=== PATIENT | female | born 2000 | race African-American/Black ===

== ENCOUNTER 2021-04-24 10:07 | Observation (INO) ==
[2021-04-24] MEDS ORDERED: ONDANSETRON 4 MG/2 ML VIAL IV STA (11:21)
[2021-04-24] MEDS ORDERED: SODIUM CHLORIDE 0.9% 1,000 ML IV STA ×2 (11:21→13:26)
[2021-04-24 12:39] LABS: Basophils % 0.2 % (0.0-0.8); Eosinophils # 0.2 10*3/uL (0.0-0.87); Eosinophils % 2.2 % (0.00-10.9); Hematocrit 36.9 VOL% (35.7-47.0); Hemoglobin 12.6 GM/DL (12.0-16.0); Immature Granulocytes % 0.8 %; Immature Granulocytes Absolute 0.07 #; Lymphocytes # 2.3 10*3/uL (1.4-4.0); Lymphocytes % 25.5 % (21.3-54.2); Mean Corpuscular HGB Conc 34.1 GM/DL (32-36); Mean Corpuscular Volume 82.6 FL (87-102); Mean Platelet Volume 9.7 FL (9.6-12.0); Monocytes % 8.4 % (1.7-12.7); Neutrophils % 62.9 % (38.7-73.9); Platelet Count 264 T/CUMM (130-400); Red Blood Count 4.47 MC/CUMM (3.8-5.5); Red Cell Distribution Width 13.3 % (9.3-17.3)
[2021-04-24 12:52] LABS: Calcium 9.2 MG/DL (8.5-10.1); Potassium 3.6 MMOL/L (3.5-5.1)
[2021-04-24 14:00] LABS: Bacteria,Urine Many /HPF (Few); Bilirubin,Urine Negative (Negative); Blood, Urine Negative (Negative); Calcium Oxalate Crystals,Urine Occasional /HPF (Few); Glucose,Urine (UA) Negative (Negative); Ketones,Urine 20 mg/dL (Negative); Mucus,Urine Moderate /LPF (Occasional); Nitrite,Urine Negative (Negative); Protein,Urine 30 MG/DL; RBC,Urine 1 /HPF (0-4); Squamous Epithelial Cell,Urine Few /HPF (0-10); Urine Appearance CLOUDY (Clear); Urine Color Amber (Yellow); Urine Specific Gravity 1.021 (1.001-1.035)
[2021-04-24] MEDS ORDERED: ACETAMINOPHEN 325 MG TABLET PO PRN (15:40)
[2021-04-24] MEDS ORDERED: MAGNESIUM HYDROXIDE SUSP 30 ML UDCUP PO PRN (15:40)
[2021-04-24] MEDS ORDERED: IBUPROFEN 800 MG TABLET PO PRN (15:40)
[2021-04-24] MEDS ORDERED: BISACODYL 10 MG SUPP RECTAL PRN (15:40)
[2021-04-24] MEDS ORDERED: ONDANSETRON 4 MG/2 ML VIAL IV PRN (15:40)
[2021-04-24] MEDS ORDERED: ACETAMINOPHEN 500 MG TABLET PO PRN (15:42)
[2021-04-24] MEDS: LACTATED RINGERS 1,000 ML IV SCH (19:54)
[2021-04-24] MEDS: DOCUSATE SODIUM 100 MG CAPSULE PO SCH (21:13)
[2021-04-25] MEDS: LACTATED RINGERS 1,000 ML IV SCH ×2 (00:46→05:53)
[2021-04-25 06:00] LABS: Calcium 8.2 MG/DL (8.5-10.1); Osmolality,Calculated 270.7 MOS/KG (273-304); Potassium 3.1 MMOL/L (3.5-5.1)
[2021-04-25] MEDS: POTASSIUM CHLORIDE 20 MEQ TABLET PO PRN ×4 (06:30→12:26)
[2021-04-25] MEDS: DOCUSATE SODIUM 100 MG CAPSULE PO SCH (08:26)
[2021-04-25 08:53] VITALS: BP 101/53
== END 2021-04-25 13:59 | disposition home or self-care (01) ==
LOC: N.EDINP 10:07 → N.ED 10:07 → N.OB 14:22
PROVIDERS: ADMIT Specialist; ATTEND Specialist